=== PATIENT | male | born 1995 | race Caucasian/White ===

== ENCOUNTER 2020-11-03 10:54 | Emergency (ER) | payer OTHER ==
[~2020-11-03] VITALS: Ht 182.9 cm; Wt 85.4 kg
--- NOTE | 2020-11-03 11:51 | REP ---
INDICATION: trauma, left radiculopathy COMPARISON: None. TECHNIQUE: Axial noncontrast images from the skull base to the thoracic inlet with coronal and sagittal re-formations This CT examination was performed using the following dose reduction techniques: Automated exposure control, adjustment of mA and/or kv according to the patient's size, and use of iterative reconstruction technique. FINDINGS: Normal alignment and lordosis is maintained. Cervical vertebral bodies including transverse processes and spinous processes are intact and there is no evidence for acute fracture / compression injury or subluxation. Spinal canal is patent. Posterior elements are intact. Paravertebral soft tissues are normal. IMPRESSION: Normal noncontrast cervical spine CT. No evidence for acute pathology or trauma/injury. <Electronically signed by Celio Castelan > 11/03/20 0561
[2020-11-03] MEDS ORDERED: NAPR-837 PO (11:57)
[2020-11-03] MEDS ORDERED: CYCL-707 PO (11:57)
[2020-11-03 12:00] VITALS: BP 134/76
[2020-11-03] MEDS ORDERED: ACETAMINOPHEN 325 MG TAB PO ONE (12:00)
[2020-11-03] MEDS ORDERED: KETOROLAC 30 MG/ML 1ML VIAL IM ONE (12:00)
== END 2020-11-03 12:08 | disposition home or self-care (01) ==
LOC: M ED 10:54
DX: S13.9XXA Sprain of joints and ligaments of unspecified parts of neck, initial encounter (principal); W00.0XXA Fall on same level due to ice and snow, initial encounter; Y92.89 Other specified places as the place of occurrence of the external cause; Y93.89 Activity, other specified; Y99.1 Military activity
CPT/HCPCS: 72125; 96372; 99283; J1885